=== PATIENT | male | born 1985 ===

== ENCOUNTER 2022-12-11 15:11 | Emergency (ER) | payer OTHER ==
[~2022-12-11] VITALS: Ht 162.6 cm; Wt 84.0 kg
[2022-12-11] MEDS ORDERED: KETOROLAC TROMETH 30 MG/ML 1ML VIAL IM ONE (15:30)
[2022-12-11] MEDS ORDERED: methylPREDNISolone SOD SUCC 125 MG/2 ML VL IM ONE (15:30)
[2022-12-11] MEDS ORDERED: CYCL-837 PO (16:25)
[2022-12-11] MEDS ORDERED: IBUP800T26 PO (16:25)
[2022-12-11 16:44] VITALS: BP 143/99
== END 2022-12-11 16:59 | disposition home or self-care (01) ==
LOC: ER 15:11
DX: S33.5XXA Sprain of ligaments of lumbar spine, initial encounter (principal); I10 Essential (primary) hypertension; X58.XXXA Exposure to other specified factors, initial encounter; Y93.89 Activity, other specified; Y92.89 Other specified places as the place of occurrence of the external cause; Y99.8 Other external cause status
CPT/HCPCS: 72131; 96372; 99285; J1885; J2930